=== PATIENT | male | born 1970 | race Hispanic/Latino ===

== ENCOUNTER 2018-05-15 09:23 | Outpatient (CLI) | payer OTHER | END 2018-05-15 09:24 | disposition home or self-care (01) | LOC: LAB 09:23 ==

== ENCOUNTER 2018-05-29 10:41 | Outpatient (CLI) | payer OTHER | END 2018-05-29 10:42 | disposition home or self-care (01) | LOC: RAD 10:42 ==

== ENCOUNTER 2018-09-01 12:34 | Outpatient (CLI) | payer OTHER | END 2018-09-01 12:35 | disposition home or self-care (01) | LOC: LAB 12:34 ==

== ENCOUNTER 2018-09-26 13:03 | Outpatient (CLI) | payer OTHER | END 2018-09-26 13:04 | disposition home or self-care (01) | LOC: RAD 13:03 ==